=== PATIENT | female | born 1955 | race Caucasian/White ===

== ENCOUNTER 2020-02-18 10:38 | Observation (INO) | payer BC, OTHER, SELFPAY ==
[2020-02-18 11:13] LABS: Absolute Lymphocytes (CBC) 2.2 K/uL (0.7-4.9); Basophils % 0.6 % (0-1.3); Hematocrit 42.2 % (36.0-45.0); Lymphocytes % 30.5 % (15.3-44.8); MPV 8.3 fL (7.6-11.3); RBC Red Blood Cell Count 4.35 M/uL (3.86-4.86)
[2020-02-18 11:17] LABS: Protime INR 0.91
--- NOTE | 2020-02-18 11:20 | RAD REPORT ---
EXAM DESCRIPTION: CT - Ct Stroke Brain Wo Cont - 02/18/2020 11:12 am CLINICAL HISTORY: NUMBNESS Headache, CVA symptomology COMPARISON: No comparisons TECHNIQUE: All CT scans are performed using dose optimization technique as appropriate and may inclu de automated exposure control or mA/KV adjustment according to patient size. FINDINGS: No intracranial hemorrhage, hydrocephalus or extra-axial fluid collection.No areas of brai n edema or evidence of midline shift. The paranasal sinuses and mastoids are clear. The calvarium is intact. IMPRESSION: No acute intracranial abnormality. The findings were discussed with Monica William in the ER on 02/18/2020 at 10:58 a.m. by telephone.
[2020-02-18 11:35] LABS: BUN Blood Urea Nitrogen 14 mg/dL (7-18); Bicarbonate 26 mmol/L (21-32); Creatine Phosphokinase 98 U/L (26-192); Glucose Level 110 mg/dL (74-106); Potassium 4.1 mmol/L (3.5-5.1); Sodium Level 136 mmol/L (136-145); Troponin (Emerg Dept Use Only) < 0.02 ng/mL (0.0-0.045)
[2020-02-18] MEDS ORDERED: ALTEPLASE 100 ML IV ONE (11:38)
[2020-02-18] MEDS ORDERED: NA CHLORIDE 0.9% 100 ML IV ONE (11:38)
--- NOTE | 2020-02-18 11:46 | RAD REPORT ---
EXAM DESCRIPTION: RAD - Chest Single View - 02/18/2020 11:39 am CLINICAL HISTORY: numbness/weakness Chest pain. COMPARISON: No comparisons FINDINGS: Portable technique limits examination quality. The lungs are grossly clear. The heart is normal in size. No displaced fractures. IMPRESSION: No acute intrathoracic process suspected.
--- NOTE | 2020-02-18 12:40 | EDPHYS ---
Physician Documentation [facility] Name: Alannah Sosa Age: 64 yrs Sex: Female : 1955 Arrival Date: 02/18/2020 Time: 10:38 Bed 6 Private MD: Harvey Soto B ED Physician Joon Larson HPI: 02/17 11:02 This 64 yrs old Female presents to ER via Unassigned with complaints of Left rn side numbness, heaviness. 11:02 The patient presents to the emergency department with weakness of the paresthesias of rn the. 11:02 Onset: The symptoms/episode began/occurred at 09:45. Associated signs and symptoms: rn Pertinent positives: paresthesias, weakness, Pertinent negatives: fever, headache, neck stiffness, seizure, syncope, blurred vision, double vision, visual field changes, loss of vision. Severity of symptoms: At their worst the symptoms were moderate in the emergency department the symptoms have improved. The patient has not experienced similar symptoms in the past. Reports vacuuming at home, noticed sudden onset left leg heaviness/numbness, difficulty walking with that leg, progressed to involve left arm, slowly improving but not resolved, took 2 aspirin prior to arrival. No recent head injury/bleeding/surgery. Only HTN.. Historical: - Allergies: 11:10 No Known Allergies; em - Home Meds: 18:29 losartan 50 mg oral tab [Active]; em - PMHx: 11:10 Hypertension; em - PSHx: 18:29 R ankle; em - Immunization history:: Adult Immunizations up to date. - Social history:: Smoking status: Patient denies any tobacco usage or history of. - Family history:: not pertinent. - Hospitalizations: : No recent hospitalization is reported. ROS: 11:02 Constitutional: Negative for fever, chills, and weight loss, Neck: Negative for injury, rn pain, and swelling, Cardiovascular: Negative for chest pain, palpitations, and edema, Respiratory: Negative for shortness of breath, cough, wheezing, and pleuritic chest pain, Abdomen/GI: Negative for abdominal pain, nausea, vomiting, diarrhea, and constipation, Back: Negative for injury and pain, MS/Extremity: Negative for injury and deformity, Skin: Negative for injury, rash, and discoloration, Neuro: Negative for headache, and seizure. Exam: 11:02 Constitutional: This is a well developed, well nourished patient who is awake, alert, rn and in no acute distress. Head/Face: Normocephalic, atraumatic. Cardiovascular: Regular rate and rhythm. No pulse deficits. Respiratory: Speaking full sentences. No increased work of breathing, no retractions or nasal flaring. Abdomen/GI: Soft, non-tender Skin: Warm, dry MS/ Extremity: Pulses equal, no cyanosis. Neurovascular intact. Full, normal range of motion. Equal circumference. Neuro: Awake alert, GCS 15, equal strength bilaterally, + subjective numbness/heaviness left arm and left leg, distal> proximal, no drift, cerebellar exam normal. 14:44 ECG was reviewed by the Attending Physician. rn Vital Signs: 10:45 BP 166 / 85; Pulse 90; Resp 18; Temp 97.8; Pulse Ox 100% on R/A; Weight 90.72 kg (R); em Height 5 ft. 3 in. (160.02 cm); Pain 0/10; 12:00 BP 155 / 76; Pulse 88; Resp 20; Pulse Ox 98% ; sv 12:30 BP 159 / 77; Pulse 83; Resp 24; Pulse Ox 100% ; sv 13:00 BP 155 / 71; Pulse 81; Resp 18; Pulse Ox 100% ; sv 13:30 BP 147 / 74; Pulse 82; Resp 18; Pulse Ox 100% ; sv 14:30 BP 150 / 75; Pulse 81; Resp 16; Pulse Ox 98% on R/A; em 15:27 BP 142 / 62; Pulse 83; Resp 18; Pulse Ox 99% on R/A; em 16:20 BP 143 / 89; Pulse 85; Resp 18; Pulse Ox 99% on R/A; Pain 0/10; em 19:24 BP 146 / 60; Pulse 76; Resp 18; Pulse Ox 95% on R/A; wh 10:45 Body Mass Index 35.43 (90.72 kg, 160.02 cm) em NIH Stroke Scale Scores: 10:48 NIHSS Score: 1 em 10:50 NIHSS Score: 1 rn 19:22 NIHSS Score: 0 wh MDM: 10:39 Patient medically screened. rn 11:10 ED course: Spoke with patient and for long time, symptoms not resolved but rn improving, spoke at length with both of them regarding TPA administration and is something that they want to do if CT head negative. Brief onset with left sided symptoms, not detectable on exam but patient still feels subjective heaviness. Is candidate for TPA without contraindications. . 11:17 ED course: Per radiology CT head neg for acute abnormality, pt consented, will rn administer TPA. 12:37 Data reviewed: vital signs, nurses notes, lab test result(s), EKG, radiologic studies, rn CT scan, and as a result, I will admit patient. Counseling: I had a detailed discussion with the patient and/or guardian regarding: the historical points, exam findings, and any diagnostic results supporting the discharge/admit diagnosis, lab results, radiology results, the need for further work-up and treatment in the hospital. Response to treatment: the patient's symptoms have resolved after treatment, the patient's condition has returned to base line, the patient is now symptom free, and as a result, I will admit patient. Admission orders: after a detailed discussion of the patient's condition and case, the admit orders are written by me. ED course: Consulted with Dr. Azar, will admit to hospitalist. Aspirin taken prior to arrival, tpa administered, + resolution of symptoms, folic acid ordered. . 02/17 11:01 Order name: CPK; Complete Time: 11: rn 02/17 11: Order name: Troponin (emerg Dept Use Only); Complete Time: : rn 02/17 11:01 Order name: Basic Metabolic Panel; Complete Time: : rn 02/17 11:01 Order name: CBC with Diff; Complete Time: : rn 02/17 11:01 Order name: Protime (+inr); Complete Time: 11: rn 02/17 11:01 Order name: Ptt, Activated; Complete Time: 11: rn 02/17 11:01 Order name: CT Stroke Brain w/o Contrast; Complete Time: 11: rn 02/17 11:01 Order name: Stroke CXR 1 View; Complete Time: 12:34 rn 02/17 11:01 Order name: EKG; Complete Time: 11:02 rn 02/17 11:02 Order name: Glucose, Ancillary Testing EDOH 02/17 13:29 Order name: Diet Regular; Complete Time: 13:30 em 02/17 20:49 Order name: US EDMS 02/17 11:01 Order name: Accucheck; Complete Time: rn 02/17 11: Order name: Cardiac monitoring; Complete Time: rn 02/17 11: Order name: EKG - Nurse/Tech; Complete Time: rn 02/17 11:01 Order name: IV Saline Lock; Complete Time: rn 02/17 11: Order name: Labs collected and sent; Complete Time: rn 02/17 11: Order name: NPO; Complete Time: rn 02/17 11: Order name: O2 Per Protocol; Complete Time: rn 02/17 11: Order name: O2 Sat Monitoring; Complete Time: rn 02/17 11: Order name: Stroke Swallow Screen; Complete Time: rn EC:44 Rate is 82 beats/min. Rhythm is regular. QRS [place] is Normal. GA interval is normal. QRS rn interval is prolonged at 140 msec. QT interval is normal. No Q waves. T waves are Normal. No ST changes noted. Clinical impression: NSR w/ Non-specific ST/T Changes. Interpreted by me. Reviewed by me. Administered Medications: 11:40 Drug: ACTIvase {Co-Signature: sv (Chelsey Ring RN).} Route: IV Thrombolytics; Rate: em calculated rate; Infused Over: 60 mins; 12:45 Follow up: Response: No adverse reaction; Marked relief of symptoms em 19:25 Follow up: Response: No adverse reaction 13:00 Drug: foLIC Acid 1 mg Route: IVPB; Site: right antecubital; em 13:10 Follow up: Response: No adverse reaction; IV Status: Completed infusion em 19:25 Follow up: Response: No adverse reaction; IV Status: Completed infusion Point of Care Testing: Blood Glucose: 11:10 Blood Glucose: 105 mg/dL; em Ranges: Critical Glucose Levels:Adult <50 mg/dl or >400 mg/dl <40 mg/dl or >180 mg/dl Disposition: 02/18/20 12:39 Hospitalization ordered by Brenden Franks for Inpatient Admission. Preliminary diagnosis are Ischemic Stroke, Weakness, Paresthesia of skin. - Bed requested for Intensive Care Unit. - Status is Inpatient Admission. - Condition is Stable. - Problem is new. - Symptoms are resolved. NIH Stroke Scale - NIH Stroke Score Date: 02/18/2020 Time: 10:48 Total Score = 1 1a. Level of Consciousness (LOC) - 0(Alert) 1b. Level of Consciousness (LOC) (Year \T\ Age) - 0(Both) 1c. LOC Commands (Open \T\ Closes Eyes/[employer] School Music Instructor) - 0(Both) 2. Best Gaze (Lateral Gaze Paresis) - 0(Normal) 3. Visual Field Loss - 0(No visual loss) 4. Facial Palsy - 0(Normal) 5a. Left Arm: Motor (10-second hold) - 0(No drift) 5b. Right Arm: Motor (10-second hold) - 0(No drift) 6a. Left Leg: Motor (5-second hold - always test supine) - 0(No drift) 6b. Right Leg: Motor (5-second hold - always test supine) - 0(No drift) 7. Limb Ataxia (finger/nose \T\ heel/espinosa - test with eyes open) - 0(Absent) 8. Sensory Loss (pinprick arms/legs/face) - 1(Mild to moderate loss) 9. Best Language: Aphasia (description/naming/reading) - 0(No aphasia) 10. Dysarthria (speech clarity - read or repeat words) - 0(Normal) 11. Extinction and Inattention (visual/tactile/auditory/spatial/personal) - 0(No abnormality) Initials: NIH Stroke Scale - NIH Stroke Score Date: 02/18/2020 Time: 10:50 Total Score = 1 1a. Level of Consciousness (LOC) - 0(Alert) 1b. Level of Consciousness (LOC) (Year \T\ Age) - 0(Both) 1c. LOC Commands (Open \T\ Closes Eyes/[employer] School Music Instructor) - 0(Both) 2. Best Gaze (Lateral Gaze Paresis) - 0(Normal) 3. Visual Field Loss - 0(No visual loss) 4. Facial Palsy - 0(Normal) 5a. Left Arm: Motor (10-second hold) - 0(No drift) 5b. Right Arm: Motor (10-second hold) - 0(No drift) 6a. Left Leg: Motor (5-second hold - always test supine) - 0(No drift) 6b. Right Leg: Motor (5-second hold - always test supine) - 0(No drift) 7. Limb Ataxia (finger/nose \T\ heel/espinosa - test with eyes open) - 0(Absent) 8. Sensory Loss (pinprick arms/legs/face) - 1(Mild to moderate loss) 9. Best Language: Aphasia (description/naming/reading) - 0(No aphasia) 10. Dysarthria (speech clarity - read or repeat words) - 0(Normal) 11. Extinction and Inattention (visual/tactile/auditory/spatial/personal) - 0(No abnormality) Initials: abimael NIH Stroke Scale - NIH Stroke Score Date: 02/18/2020 Time: : Total Score = 0 1a. Level of Consciousness (LOC) - 0(Alert) 1b. Level of Consciousness (LOC) (Year \T\ Age) - 0(Both) 1c. LOC Commands (Open \T\ Closes Eyes/High School Music Instructor) - 0(Both) 2. Best Gaze (Lateral Gaze Paresis) - 0(Normal) 3. Visual Field Loss - 0(No visual loss) 4. Facial Palsy - 0(Normal) 5a. Left Arm: Motor (10-second hold) - 0(No drift) 5b. Right Arm: Motor (10-second hold) - 0(No drift) 6a. Left Leg: Motor (5-second hold - always test supine) - 0(No drift) 6b. Right Leg: Motor (5-second hold - always test supine) - 0(No drift) 7. Limb Ataxia (finger/nose \T\ heel/espinosa - test with eyes open) - 0(Absent) 8. Sensory Loss (pinprick arms/legs/face) - 0(Normal) 9. Best Language: Aphasia (description/naming/reading) - 0(No aphasia) 10. Dysarthria (speech clarity - read or repeat words) - 0(Normal) 11. Extinction and Inattention (visual/tactile/auditory/spatial/personal) - 0(No abnormality) Initials: Signatures: Dispatcher [employer] Nathaly Rosales RN RN kl Webb, Martha, RN RN mw Munoz, Edgar, RN RN em Nieto, Roman, MD MD rn Habalo, Winsy wh Roque, Raymond, RN RN rr5 Chelsey Ring RN sv Corrections: (The following items were deleted from the chart) 13:38 12:39 Hospitalization Ordered by Brenden Franks MD for Inpatient Admission. Preliminary diagnosis is Ischemic Stroke; Weakness; Paresthesia of skin. Bed requested for Telemetry/MedSurg (Inpatient). Status is Inpatient Admission. Condition is Stable. Problem is new. Symptoms are resolved. rn 13:40 13:38 02/18/2020 12:39 Hospitalization Ordered by Brenden Franks MD for kl Inpatient Admission. Preliminary diagnosis is Ischemic Stroke; Weakness; Paresthesia of skin. Bed requested for Telemetry/MedSurg (Inpatient). Status is Inpatient Admission. Condition is Stable. Problem is new. Symptoms are resolved. kl 18:29 11:10 PSHx: None; em em 19:33 13:40 02/18/2020 12:39 Hospitalization Ordered by Brenden Franks MD for Inpatient Admission. Preliminary diagnosis is Ischemic Stroke; Weakness; Paresthesia of skin. Bed requested for Telemetry/MedSurg (Inpatient). Status is Inpatient Admission. Condition is Stable. Problem is new. Symptoms are resolved. 23:01 19:33 02/18/2020 12:39 Hospitalization Ordered by Brenden Franks MD for rr5 Inpatient Admission. Preliminary diagnosis is Ischemic Stroke; Weakness; Paresthesia of skin. Bed requested for RUST ER HOLD. Status is Inpatient Admission. Condition is Stable. Problem is new. Symptoms are resolved. 02/18 00:38 02/17 23:01 02/18/2020 12:39 Hospitalization Ordered by Brenden Franks MD for Inpatient Admission. Preliminary diagnosis is Ischemic Stroke; Weakness; Paresthesia of skin. Bed requested for Intensive Care Unit. Status is Inpatient Admission. Condition is Stable. Problem is new. Symptoms are resolved. [email or web address]
--- NOTE | 2020-02-18 12:40 | ER ---
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 10:45 Coronavirus screen: Patient denies a cough. Patient denies shortness of breath or em difficulty breathing. Patient denies measured and/or subjective temperature greater than 100.4F prior to today's visit. Patient denies travel on a cruise ship or to a country the [facility] currently lists as an affected area. Patient denies contact with known and/or suspected case of COVID-19. Ebola Screen: Patient negative for fever greater than or equal to 101.5 degrees Fahrenheit, and additional compatible Ebola Virus Disease symptoms Patient denies exposure to infectious person. Patient denies travel to an Ebola-affected area in the 21 days before illness onset. No symptoms or risks identified at this time. Initial Sepsis Screen: Does the patient meet any 2 criteria? No. Patient's initial sepsis screen is negative. Does the patient have a suspected source of infection? No. Patient's initial sepsis screen is negative. Risk Assessment: Do you want to hurt yourself or someone else? Patient reports no desire to harm self or others. Onset of symptoms was February 18, 2020 at 09:45. 10:45 Method Of Arrival: Wheelchair em 10:45 Acuity: RYANN 2 em 10:45 An acute neurological deficit is present. The charge nurse has been notified. em Pre-hospital glucose is not applicable to this patient. Triage Assessment: 19:23 Neuro: Reports numbness. 19:23 The onset of the patients symptoms was February 18, 2020 at 09:45. Stroke Activation: Physician: Stroke Attending; Name: ; Notified At: ; Arrived At: Physician: Chief Stroke Resident; Name: ; Notified At: ; Arrived At: Physician: Stroke Resident; Name: ; Notified At: ; Arrived At: Physician: ED Attending; Name: Neo; Notified At: 10:45; Arrived At: Physician: ED Resident; Name: ; Notified At: ; Arrived At: Historical: - Allergies: 11:10 No Known Allergies; em - Home Meds: 18:29 losartan 50 mg oral tab [Active]; em - PMHx: 11:10 Hypertension; em - PSHx: 18:29 R ankle; em - Immunization history:: Adult Immunizations up to date. - Social history:: Smoking status: Patient denies any tobacco usage or history of. - Family history:: not pertinent. - Hospitalizations: : No recent hospitalization is reported. Screenin:45 Abuse screen: Denies threats or abuse. Nutritional screening: No deficits noted. em Tuberculosis screening: No symptoms or risk factors identified. Fall Risk None identified. Assessment: 10:48 Reassessment: Dr. Larson at bedside. em 10:48 VAN Scoring: Arm Drift: Patients demonstrates NO arm weakness. Patient is VAN Negative. em 10:48 General: Appears in no apparent distress. comfortable, Behavior is calm, cooperative, em appropriate for age, Denies fever. Pain: Denies pain. Neuro: Level of Consciousness is awake, alert, obeys commands, Oriented to person, place, time, situation, Appropriate for age Drum Attendant are equal bilaterally Moves all extremities. Gait is steady, Speech is normal, Facial symmetry appears normal, Numbness in left arm and left leg Denies blurred vision dizziness, difficulty swallowing, headache. Cardiovascular: Capillary refill < 3 seconds Patient's skin is warm and dry. Respiratory: Airway is patent Respiratory effort is even, unlabored, Respiratory pattern is regular, symmetrical. GI: Abdomen is round non-distended, Patient currently denies nausea, vomiting. Derm: Skin is intact, is healthy with good turgor, Skin is pink, warm \T\ dry. Musculoskeletal: Capillary refill < 3 seconds, Range of motion: intact in all extremities. 10:57 Reassessment: wheeled to CT via stretcher by me. em 11:10 T-PA (Activase) Screening: Indications: Definite evidence of stroke, ischemic, embolic, em or hypertensive: Yes. Treatment will start within 4.5 hours onset of symptoms: Yes. No evidence of intracranial hemorrhage or CT of head and no evidence of peripheral hemorrhage or recent CVA: Yes. Consent for thrombolytic therapy: Yes. 11:55 Patient has been NPO before screening. The patient is alert, and able to follow em commands. The patient does not exhibit slurred or garbled speech. The patient is not exhibiting difficulty speaking. The patient does not exhibit difficulty understanding words. The patient is able to swallow own secretions with no drooling or need for suction. Patient tolerated one teaspoon of water. No drooling, immediate coughing, gurgling, or clearing of the throat was noted. The patient tolerated 90mL of water. No drooling, immediate coughing, gurgling, or clearing of the throat was noted. The patient passed the bedside swallow screening. Oral medications may be given as ordered. Contact Physician for further diet orders. Provider notified of bedside swallow screening results: Joon Larson MD. 12:10 Reassessment: Patient appears in no apparent distress at this time. Patient and/or em family updated on plan of care and expected duration. Pain level reassessed. Patient is alert, oriented x 3, equal unlabored respirations, skin warm/dry/pink. Patient states feeling better. Patient states symptoms have improved. 13:20 Reassessment: Tim ORTHOPAEDIC SURGEON at bedside to assess pt and then will place admission orders. sv 13:52 Reassessment: Patient appears in no apparent distress at this time. Patient and/or em family updated on plan of care and expected duration. Pain level reassessed. Patient is alert, oriented x 3, equal unlabored respirations, skin warm/dry/pink. 15:22 Reassessment: Patient appears in no apparent distress at this time. Patient and/or em family updated on plan of care and expected duration. Pain level reassessed. Patient is alert, oriented x 3, equal unlabored respirations, skin warm/dry/pink. 16:20 Reassessment: Patient appears in no apparent distress at this time. Patient and/or em family updated on plan of care and expected duration. Pain level reassessed. Patient is alert, oriented x 3, equal unlabored respirations, skin warm/dry/pink. 17:30 Reassessment: Patient appears in no apparent distress at this time. Patient and/or em family updated on plan of care and expected duration. Pain level reassessed. Patient is alert, oriented x 3, equal unlabored respirations, skin warm/dry/pink. 18:30 Reassessment: Patient appears in no apparent distress at this time. Patient and/or em family updated on plan of care and expected duration. Pain level reassessed. Patient is alert, oriented x 3, equal unlabored respirations, skin warm/dry/pink. 19:22 General: Appears in no apparent distress. Behavior is calm, cooperative, appropriate wh for age. Pain: Denies pain. Neuro: Level of Consciousness is awake, alert, obeys commands, Oriented to person, place, time, situation, Appropriate for age Drum Attendant are equal bilaterally Moves all extremities. Speech is normal, Facial symmetry appears normal, Intact. Cardiovascular: Capillary refill < 3 seconds. Respiratory: Airway is patent Respiratory effort is even, unlabored, Respiratory pattern is regular, symmetrical. GI: Abdomen is round non-distended. : No signs and/or symptoms were reported regarding the genitourinary system. EENT: No deficits noted. Derm: Skin is intact, is healthy with good turgor, Skin is pink, warm \T\ dry. normal. Musculoskeletal: Circulation, motion, and sensation intact. Vital Signs: 10:45 BP 166 / 85; Pulse 90; Resp 18; Temp 97.8; Pulse Ox 100% on R/A; Weight 90.72 kg (R); em Height 5 ft. 3 in. (160.02 cm); Pain 0/10; 12:00 BP 155 / 76; Pulse 88; Resp 20; Pulse Ox 98% ; sv 12:30 BP 159 / 77; Pulse 83; Resp 24; Pulse Ox 100% ; sv 13:00 BP 155 / 71; Pulse 81; Resp 18; Pulse Ox 100% ; sv 13:30 BP 147 / 74; Pulse 82; Resp 18; Pulse Ox 100% ; sv 14:30 BP 150 / 75; Pulse 81; Resp 16; Pulse Ox 98% on R/A; em 15:27 BP 142 / 62; Pulse 83; Resp 18; Pulse Ox 99% on R/A; em 16:20 BP 143 / 89; Pulse 85; Resp 18; Pulse Ox 99% on R/A; Pain 0/10; em 19:24 BP 146 / 60; Pulse 76; Resp 18; Pulse Ox 95% on R/A; wh 10:45 Body Mass Index 35.43 (90.72 kg, 160.02 cm) em [facility] Stroke Scale Scores: 10:48 NIHSS Score: 1 em 10:50 NIHSS Score: 1 rn 19:22 NIHSS Score: 0 ED Course: 10:38 Patient arrived in ED. mr 10:39 Harvey Soto MD is Private Physician. mr 10:39 Joon Larson MD is Attending Physician. rn 10:40 Ladarius Barrow, DALTON is Primary Nurse. em 10:45 Patient has correct armband on for positive identification. Placed in gown. Bed in low em position. Call light in reach. Side rails up X2. finishing room operator on. Pulse ox on. NIBP on. 10:45 Procedure consent explained by physician, TPA consent . em 11:02 Initial lab(s) drawn, by me, sent to lab. Inserted saline lock: 20 gauge in right em antecubital area, using aseptic technique. Blood collected. 11:09 Triage completed. em 11:10 Arm band placed on. em 11:12 CT Stroke Brain w/o Contrast In Process Unspecified. EDMS 11:23 EKG done, by ED staff, reviewed by Ladarius Barrow RN. em 11:36 Stroke CXR 1 View In Process Unspecified. EDMS 12:38 Brenden Franks MD is Hospitalizing Provider. rn 19:56 No provider procedures requiring assistance completed. Patient admitted, IV remains in place. 22:00 Primary Nurse role handed off by Ladarius Barrow, DALTON 23:10 Wendy Garcia is Primary Nurse. Administered Medications: 11:40 Drug: ACTIvase {Co-Signature: sv (Chelsey Ring RN).} Route: IV Thrombolytics; Rate: em calculated rate; Infused Over: 60 mins; 12:45 Follow up: Response: No adverse reaction; Marked relief of symptoms em 19:25 Follow up: Response: No adverse reaction 13:00 Drug: foLIC Acid 1 mg Route: IVPB; Site: right antecubital; em 13:10 Follow up: Response: No adverse reaction; IV Status: Completed infusion em 19:25 Follow up: Response: No adverse reaction; IV Status: Completed infusion Point of Care Testing: Blood Glucose: 11:10 Blood Glucose: 105 mg/dL; em Ranges: Outcome: 12:39 Decision to Hospitalize by Provider. rn 19:56 Admitted to ER Hold. Please see [employer] for further documentation. 19:56 Condition: stable 19:56 Instructed on the need for admit. 02/18 00:38 Patient left the ED. 00:41 Admitted to ICU accompanied by nurse, via wheelchair, room 10, with chart, Report wh called to Savannah HOFFMAN 00:41 Condition: stable 00:41 Instructed on the need for admit. NIH Stroke Scale - NIH Stroke Score Date: 02/18/2020 Time: 10:48 Total Score = 1 1a. Level of Consciousness (LOC) - 0(Alert) 1b. Level of Consciousness (LOC) (Year \T\ Age) - 0(Both) 1c. LOC Commands (Open \T\ Closes Eyes/Wash Oil Pump Operator Helper) - 0(Both) 2. Best Gaze (Lateral Gaze Paresis) - 0(Normal) 3. Visual Field Loss - 0(No visual loss) 4. Facial Palsy - 0(Normal) 5a. Left Arm: Motor (10-second hold) - 0(No drift) 5b. Right Arm: Motor (10-second hold) - 0(No drift) 6a. Left Leg: Motor (5-second hold - always test supine) - 0(No drift) 6b. Right Leg: Motor (5-second hold - always test supine) - 0(No drift) 7. Limb Ataxia (finger/nose \T\ heel/espinosa - test with eyes open) - 0(Absent) 8. Sensory Loss (pinprick arms/legs/face) - 1(Mild to moderate loss) 9. Best Language: Aphasia (description/naming/reading) - 0(No aphasia) 10. Dysarthria (speech clarity - read or repeat words) - 0(Normal) 11. Extinction and Inattention (visual/tactile/auditory/spatial/personal) - 0(No abnormality) Initials: em NIH Stroke Scale - NIH Stroke Score Date: 02/18/2020 Time: 10:50 Total Score = 1 1a. Level of Consciousness (LOC) - 0(Alert) 1b. Level of Consciousness (LOC) (Year \T\ Age) - 0(Both) 1c. LOC Commands (Open \T\ Closes Eyes/Wash Oil Pump Operator Helper) - 0(Both) 2. Best Gaze (Lateral Gaze Paresis) - 0(Normal) 3. Visual Field Loss - 0(No visual loss) 4. Facial Palsy - 0(Normal) 5a. Left Arm: Motor (10-second hold) - 0(No drift) 5b. Right Arm: Motor (10-second hold) - 0(No drift) 6a. Left Leg: Motor (5-second hold - always test supine) - 0(No drift) 6b. Right Leg: Motor (5-second hold - always test supine) - 0(No drift) 7. Limb Ataxia (finger/nose \T\ heel/espinosa - test with eyes open) - 0(Absent) 8. Sensory Loss (pinprick arms/legs/face) - 1(Mild to moderate loss) 9. Best Language: Aphasia (description/naming/reading) - 0(No aphasia) 10. Dysarthria (speech clarity - read or repeat words) - 0(Normal) 11. Extinction and Inattention (visual/tactile/auditory/spatial/personal) - 0(No abnormality) Initials: dalton NIH Stroke Scale - NIH Stroke Score Date: 02/18/2020 Time: 19:22 Total Score = 0 1a. Level of Consciousness (LOC) - 0(Alert) 1b. Level of Consciousness (LOC) (Year \T\ Age) - 0(Both) 1c. LOC Commands (Open \T\ Closes Eyes/Wash Oil Pump Operator Helper) - 0(Both) 2. Best Gaze (Lateral Gaze Paresis) - 0(Normal) 3. Visual Field Loss - 0(No visual loss) 4. Facial Palsy - 0(Normal) 5a. Left Arm: Motor (10-second hold) - 0(No drift) 5b. Right Arm: Motor (10-second hold) - 0(No drift) 6a. Left Leg: Motor (5-second hold - always test supine) - 0(No drift) 6b. Right Leg: Motor (5-second hold - always test supine) - 0(No drift) 7. Limb Ataxia (finger/nose \T\ heel/espinosa - test with eyes open) - 0(Absent) 8. Sensory Loss (pinprick arms/legs/face) - 0(Normal) 9. Best Language: Aphasia (description/naming/reading) - 0(No aphasia) 10. Dysarthria (speech clarity - read or repeat words) - 0(Normal) 11. Extinction and Inattention (visual/tactile/auditory/spatial/personal) - 0(No abnormality) Initials: wh Signatures: Dispatcher [employer] [facility] María Elena, Chelsey, RN RN sv Edwar Bejarano RN RN Serina Encinas mr Danial, Ladarius, DALTON HOFFMAN em Joon Larson MD MD rn Habalo, Winsy Chelsey valle Corrections: (The following items were deleted from the chart) 02/17 13:10 11:10 Reassessment: Patient appears in no apparent distress at this time. em Patient and/or family updated on plan of care and expected duration. Pain level reassessed. Patient is alert, oriented x 3, equal unlabored respirations, skin warm/dry/pink. Patient states feeling better. Patient states symptoms have improved. em 18:29 11:10 PSHx: None; em em
[2020-02-18] MEDS ORDERED: FOLIC ACID 5 MG/ML VIAL ONE (13:10)
--- NOTE | 2020-02-18 13:46 | P.HP ---
Certification for Inpatient Patient admitted to: Inpatient With expected LOS: >2 Midnights Patient will require the following post-hospital care: None Practitioner: I am a practitioner with admitting privileges, knowledge of patient current condition, hospital course, and medical plan of care. Services: Services provided to patient in accordance with Admission requirements found in Title 42 Section 412.3 of the Code of Federal Regulations Patient History Date of Service: 02/18/20 Primary Care Provider: Charles Reason for admission: Ischemic CVA History of Present Illness: 64-year-old female with past medical history of hypertension presents emergency department for left lower extremity weakness/numbness. Patient reports that the symptoms started approximately 0945 this morning. Patient presented within the window and based on her discussion with ED provider and symptoms it was determined that she would be a good candidate for t-PA. Patient did receive t-PA in the emergency department and symptoms have since resolved. Patient is currently feeling at her baseline. CT is negative for any acute findings. ED provider consulted with Neurology while patient was in the emergency department and wishes to admit patient for further evaluation and management. When I saw the patient in the emergency department she was awake, alert, oriented x3. Patient denies any pain, reports that she feels normal. Blood pressure is slightly elevated at 150/80. Patient be admitted for further evaluation and management Home medications list reviewed: Yes - Past Medical/Surgical History Has patient received pneumonia vaccine in the past: No Diabetic: No -: Hypertension -: Left ankle surgery Psychosocial/ Personal History: Patient lives at home with her spouse - Family History Father -: Cancer - Social History Smoking Status: Never smoker Alcohol use: Yes CD- Drugs: No Caffeine use: No Place of Residence: Home Review of Systems Unremarkable Physical Examination - Physical Exam General: Alert, In no apparent distress HEENT: Atraumatic, PERRLA, Mucous membr. moist/pink, EOMI, Sclerae nonicteric Neck: Supple, 2+ carotid pulse no bruit Respiratory: Clear to auscultation bilaterally, Normal air movement Cardiovascular: Regular rate/rhythm, Normal S1 S2 Gastrointestinal: Normal bowel sounds, No tenderness Musculoskeletal: No tenderness Integumentary: No rashes Neurological: Normal gait, Normal speech, Normal strength at 5/5 x4 extr, Normal tone, Normal affect - Studies Laboratory Data (last 24 hrs) 02/18/20 11:02: PT 10.7, INR 0.91, APTT 33.1 02/18/20 11:02: WBC 7.1, Hgb 14.4, Hct 42.2, Plt Count 226 02/18/20 11:02: Sodium 136, Potassium 4.1, BUN 14, Creatinine 0.77, Glucose 110 H Assessment and Plan - Plan Assessment Acute ischemic CVA status post TPA infusion with the resolution of symptoms Hypertension Plan Acute ischemic CVA status post TPA infusion with the resolution of symptoms: Patient be admitted to the ICU for close monitoring after t-PA infusion. Neurology has been consulted. Will continue with stroke workup including MRI, echocardiogram, ultrasound of the carotids, lipid panel, evaluation by speech and physical therapy. Statin therapy has been started. Will hold on aspirin/Plavix for the next 24 hr. Q.1 hr neuro checks in place. Patient can likely be downgraded tomorrow morning. Hypertension: Will hold patient's blood pressure medication this time to allow for permissive hypertension for the next 3 days with a systolic max of 170. Discharge Plan: Home Plan to discharge in: 48 Hours - Advance Directives Does patient have a Living Will: No Does patient have a Durable POA for Healthcare: No - Code Status/Comfort Care Code Status Assessed: Yes (Patient is full code) Critical Care: No Time Spent Managing Pts Care (In Minutes): 55
[2020-02-18] MEDS ORDERED: ONDANSETRON 4 MG/2 ML VIAL IV PRN (19:46)
[2020-02-18] MEDS ORDERED: ACETAMINOPHEN 500 MG TAB PO PRN (19:46)
[2020-02-18] MEDS ORDERED: NA CHLORIDE 0.9% 1,000 ML IV SCH (19:46)
[2020-02-18 19:52] VITALS: BMI 35.4
--- NOTE | 2020-02-18 20:47 | RAD REPORT ---
EXAM DESCRIPTION: USCarotid Artery Bilateral02/18/2020 8:35 pm CLINICAL HISTORY: cva COMPARISON: None FINDINGS: The velocity of the right internal carotid artery equals 78 cm/sec. The right ICA/CCA rati o 1. The velocity of the left internal carotid artery equals 80 cm/sec. The left ICA/CCA ratio 1.4 Minimal plaque is present within the carotid arteries. The vertebral arteries demonstrate antegrade flow IMPRESSION: Minimal plaque within the carotid arteries without evidence of a hemodynamically signifi cant stenosis NASCET criteria used. Mild 0-49% stenosis Moderate 50-69% stenosis Severe 70-99% stenosis
[2020-02-18] MEDS ORDERED: ATORVASTATIN 20 MG TAB PO SCH (21:00)
[2020-02-18] MEDS ORDERED: ATORVASTATIN 20 MG TAB ONE (21:01)
[2020-02-18] MEDS ORDERED: NA CHLORIDE 0.9% 1,000 ML ONE (21:01)
[2020-02-19 04:42] LABS: Absolute Lymphocytes (CBC) 2.2 K/uL (0.7-4.9); Basophils % 0.4 % (0-1.3); Hematocrit 39.3 % (36.0-45.0); Lymphocytes % 31.7 % (15.3-44.8); MPV 8.4 fL (7.6-11.3); RBC Red Blood Cell Count 4.05 M/uL (3.86-4.86)
[2020-02-19 04:46] LABS: Protime INR 1.01
[2020-02-19 05:16] LABS: Potassium 4.5 mmol/L (3.5-5.1); T4,Total 6.4 ug/dL (4.8-13.9); Thyroid Stimulating Hormone 3.12 uIU/mL (0.360-3.740)
[2020-02-19 05:17] VITALS: O2SAT 96
--- NOTE | 2020-02-19 07:26 | EKG ---
Test Date: 2020-02-18 Test Time: 11:23:22 Taping Supervisor: MAEGAN MEASUREMENT RESULTS: Intervals: Rate: 82 NM: 166 QRSD: 140 QT: 402 QTc: 469 Romulus: P: 57 NM: 166 QRS: 9 T: 99 INTERPRETIVE STATEMENTS: Normal sinus rhythm Left bundle branch block Abnormal ECG No previous ECG available for comparison Electronically Signed On 02-19-20 07:25:01 CDT by Mejia Crooks
[2020-02-19] MEDS ORDERED: FOLIC ACID 1 MG TABLET ONE (08:24)
[2020-02-19] MEDS ORDERED: FOLIC ACID 1 MG TABLET PO SCH (09:00)
[2020-02-19 11:34] VITALS: BP 134/70
--- NOTE | 2020-02-19 12:47 | RAD REPORT ---
EXAM DESCRIPTION: MRI - Brain W/Wo Cont - 02/19/2020 12:28 pm CLINICAL HISTORY: LLE weakness Headache, drowsiness, CVA symptomology COMPARISON: MRA Head Wo Cont dated 02/19/2020; MRA Neck W/Wo Cont dated 02/19/2020 TECHNIQUE: Multi-sequence, multiplanar MR imaging of the brain was performed with contrast. FINDINGS: No intracranial hemorrhage, hydrocephalus, or extra-axial fluid collection.Few small foci of T2 and FLAIR hyperintensity in the periventricular and deep white matter noted likely representing chronic microvascular ischemia. No edema or shift of midline structures. No intracranial mass. DWI i s negative for acute CVA. The midline structures are normally formed. Mastoid air cells and paranasal sinuses are clear. Post-contrast images show no abnormal enhancement to suggest tumor or infection. IMPRESSION: Negative for acute CVA or other acute intracranial abnormality. No pathologic post-contrast enhancement suspected.
--- NOTE | 2020-02-19 12:48 | RAD REPORT ---
EXAM DESCRIPTION: MRI - MRA Head Wo Cont - 02/19/2020 12:27 pm CLINICAL HISTORY: LLE weakness CVA COMPARISON: Ct Stroke Brain Wo Cont dated 02/18/2020 FINDINGS: 3D noncontrast [id number] MR angiography of the [place] of [place] was performed. No aneurysm, flow-limiting stenosis or vascular malformation is seen. Forward flow seen in codominant vertebral arteries. The visualized dural venous sinuses appear patent. IMPRESSION: No significant flow abnormality of the [place] of [place] is identified.
--- NOTE | 2020-02-19 12:49 | RAD REPORT ---
EXAM DESCRIPTION: MRI - MRA Neck W/Wo Cont - 02/19/2020 12:28 pm CLINICAL HISTORY: LLE weakness Headache, drowsiness, CVA symptomology COMPARISON: No comparisons FINDINGS: Contrast enhance 2D [id number] MR angiography of the neck vessels was performed. A left aortic arch is noted with normal branching pattern of the great vessels. Both subclavian arteries and common carotid arteries are widely patent. Both internal carotid arterie s are widely patent without stenosis or flow abnormality. Antegrade flow seen in both vertebral arteries, which appear codominant. IMPRESSION: No flow abnormality of the neck vessels is identified.
[2020-02-19 12:53] VITALS: TEMP 98.2
--- NOTE | 2020-02-19 13:29 | P.DS ---
Admission Date: 02/18/20 Discharge Date: 02/19/20 Primary Care Provider: Charles Reason for Admission: TIA Consultations: Neurology- Dr. Azar Procedures: CT Brain FINDINGS: No intracranial hemorrhage, hydrocephalus or extra-axial fluid collection.No areas of brain edema or evidence of midline shift. The paranasal sinuses and mastoids are clear. The calvarium is intact. IMPRESSION: No acute intracranial abnormality. CXR FINDINGS: Portable technique limits examination quality. The lungs are grossly clear. The heart is normal in size. No displaced fractures. IMPRESSION: No acute intrathoracic process suspected. MRI brain with FINDINGS: 3D noncontrast [id number] MR angiography of the [place] was performed. No aneurysm, flow-limiting stenosis or vascular malformation is seen. Forward flow seen in codominant vertebral arteries. The visualized dural venous sinuses appear patent. IMPRESSION: No significant flow abnormality of the [place] is identified. MRI brain without FINDINGS: No intracranial hemorrhage, hydrocephalus, or extra-axial fluid collection.Few small foci of T2 and FLAIR hyperintensity in the periventricular and deep white matter noted likely representing chronic microvascular ischemia. No edema or shift of midline structures. No intracranial mass. DWI is negative for acute CVA. The midline structures are normally formed. Mastoid air cells and paranasal sinuses are clear. Post-contrast images show no abnormal enhancement to suggest tumor or infection. IMPRESSION: Negative for acute CVA or other acute intracranial abnormality. No pathologic post-contrast enhancement suspected. MRI neck FINDINGS: Contrast enhance 2D [id number] MR angiography of the neck vessels was performed. A left aortic arch is noted with normal branching pattern of the great vessels. Both subclavian arteries and common carotid arteries are widely patent. Both internal carotid arteries are widely patent without stenosis or flow abnormality. Antegrade flow seen in both vertebral arteries, which appear codominant. IMPRESSION: No flow abnormality of the neck vessels is identified. US carotids FINDINGS: The velocity of the right internal carotid artery equals 78 cm/sec. The right ICA/CCA ratio 1. The velocity of the left internal carotid artery equals 80 cm/sec. The left ICA/CCA ratio 1.4 Minimal plaque is present within the carotid arteries. The vertebral arteries demonstrate antegrade flow IMPRESSION: Minimal plaque within the carotid arteries without evidence of a hemodynamically significant stenosis NASCET criteria used. Mild 0-49% stenosis Moderate 50-69% stenosis Severe 70-99% stenosis Medical problem list TIA Hypertension Hyperlipidemia Brief History of Present Illness: 64-year-old female with past medical history of hypertension presents emergency department for left lower extremity weakness/numbness. Patient reports that the symptoms started approximately 0945 this morning. Patient presented within the window and based on her discussion with ED provider and symptoms it was determined that she would be a good candidate for t-PA. Patient did receive t-PA in the emergency department and symptoms have since resolved. Patient is currently feeling at her baseline. CT is negative for any acute findings. ED provider consulted with Neurology while patient was in the emergency department and wishes to admit patient for further evaluation and management. Hospital Course: 64-year-old female with medical history of hypertension was admitted to the emergency department after experiencing subjective sensation changes to the left lower extremity. After detailed discussion with ED provider patient elected to receive TPA. TPA was infused and after completion patient experienced complete resolution of her sensory symptoms. Patient was kept in the ICU overnight and monitor closely, patient doing very well. Patient without any neurological deficits. Patient ambulatory to restroom denies headache, vital signs stable, no bleeding noted. Lab stable. Patient received echocardiogram, ultrasound of the carotids, MRI/MRA of the brain and neck, CT head without contrast, chest x-ray all of which were unremarkable. Discussed case at length with neurology who believes that this was either a TIA or the t-PA help to resolve the symptoms. Patient was not previously on aspirin so the current recommendation would be that the patient takes aspirin 81 mg p.o. once daily, Lipitor 40 mg p.o. at bedtime, folic acid 1 mg p.o. daily. Patient is to follow up with neurology on outpatient basis, patient can call on Sunday to set up appointment. Patient also instructed to present to the closest emergency department with any neurological symptoms at all. Patient history of hypertension, will continue with losartan 50 mg p.o. once daily. Patient also instructed to keep daily log of blood pressures until she is seen by neurology. <Tim Bradley - Last Filed: 02/19/20 13:21> Admission Date: 02/18/20 Discharge Date: 02/19/20 Hospital Course: The patient was seen and examined and findings were discussed with the patient and the consult Agree with the assessment and plan as documented by the JOSE R <Tato Franks - Last Filed: 02/19/20 14:12> Disposition: ROUTINE DISCHARGE Discharge Condition: GOOD Vital Signs/Physical Exam: Temp Pulse Resp BP Pulse Ox 98.2 F 97 H 16 134/70 97 02/19/20 12:00 02/19/20 12:00 02/19/20 12:00 02/19/20 11:00 02/19/20 12:00 General: Alert, In no apparent distress HEENT: Atraumatic, PERRLA, EOMI Neck: Supple, JVD not distended Respiratory: Clear to auscultation bilaterally, Normal air movement Cardiovascular: Regular rate/rhythm, Normal S1 S2 Gastrointestinal: Normal bowel sounds, No tenderness Musculoskeletal: No tenderness Integumentary: No rashes Neurological: Normal speech, Normal tone, Normal affect Lymphatics: No axilla or inguinal lymphadenopathy Laboratory Data at Discharge: WBC 7.0 K/uL (4.3-10.9) 02/19/20 04:20 Hgb 13.6 g/dL (12.0-15.0) 02/19/20 04:20 Hct 39.3 % (36.0-45.0) 02/19/20 04:20 Plt Count 211 K/uL (152-406) 02/19/20 04:20 PT 11.9 SECONDS (9.5-12.5) 02/19/20 04:20 INR 1.01 02/19/20 04:20 APTT 32.3 SECONDS (24.3-36.9) 02/19/20 04:20 Sodium 142 mmol/L (136-145) 02/19/20 04:20 Potassium 4.5 mmol/L (3.5-5.1) 02/19/20 04:20 BUN 10 mg/dL (7-18) 02/19/20 04:20 Creatinine 0.74 mg/dL (0.55-1.3) 02/19/20 04:20 Glucose 104 mg/dL (74-106) 02/19/20 04:20 Triglycerides 93 mg/dL (<150) 02/19/20 04:20 Cholesterol 232 mg/dL (<200) H 02/19/20 04:20 HDL Cholesterol 85 mg/dL (40-60) H 02/19/20 04:20 Cholesterol/HDL Ratio 2.73 02/19/20 04:20 <Tim Bradley - Last Filed: 02/19/20 13:21> Vital Signs/Physical Exam: Temp Pulse Resp BP Pulse Ox 98.2 F 97 H 16 134/70 97 02/19/20 12:00 02/19/20 12:00 02/19/20 12:00 02/19/20 11:00 02/19/20 12:00 Laboratory Data at Discharge: WBC 7.0 K/uL (4.3-10.9) 02/19/20 04:20 Hgb 13.6 g/dL (12.0-15.0) 02/19/20 04:20 Hct 39.3 % (36.0-45.0) 02/19/20 04:20 Plt Count 211 K/uL (152-406) 02/19/20 04:20 PT 11.9 SECONDS (9.5-12.5) 02/19/20 04:20 INR 1.01 02/19/20 04:20 APTT 32.3 SECONDS (24.3-36.9) 02/19/20 04:20 Sodium 142 mmol/L (136-145) 02/19/20 04:20 Potassium 4.5 mmol/L (3.5-5.1) 02/19/20 04:20 BUN 10 mg/dL (7-18) 02/19/20 04:20 Creatinine 0.74 mg/dL (0.55-1.3) 02/19/20 04:20 Glucose 104 mg/dL (74-106) 02/19/20 04:20 Triglycerides 93 mg/dL (<150) 02/19/20 04:20 Cholesterol 232 mg/dL (<200) H 02/19/20 04:20 HDL Cholesterol 85 mg/dL (40-60) H 02/19/20 04:20 Cholesterol/HDL Ratio 2.73 02/19/20 04:20 <Tato Franks - Last Filed: 02/19/20 14:12> Patient Discharge Instructions: 1. Please follow up with the primary care doctor within 1 week to follow up this hospitalization. 2. Please contact Dr. Azar's office on Sunday to schedule follow up appointment. 3. 64-year-old female with medical history of hypertension was admitted to the emergency department after experiencing subjective sensation changes to the left lower extremity. After detailed discussion with ED provider patient elected to receive TPA. TPA was infused and after completion patient experienced complete resolution of her sensory symptoms. Patient was kept in the ICU overnight and monitor closely, patient doing very well. Patient without any neurological deficits. Patient ambulatory to restroom denies headache, vital signs stable, no bleeding noted. Lab stable. Patient received echocardiogram, ultrasound of the carotids, MRI/MRA of the brain and neck, CT head without contrast, chest x- ray all of which were unremarkable. Discussed case at length with neurology who believes that this was either a TIA or the t-PA help to resolve the symptoms. Patient was not previously on aspirin so the current recommendation would be that the patient takes aspirin 81 mg p.o. once daily, Lipitor 40 mg p.o. at bedtime, folic acid 1 mg p.o. daily. Patient is to follow up with neurology on outpatient basis, patient can call on Sunday to set up appointment. Patient also instructed to present to the closest emergency department with any neurological symptoms at all. Patient history of hypertension, will continue with losartan 50 mg p.o. once daily. Patient also instructed to keep daily log of blood pressures until she is seen by neurology. Diet: Regular Activity: Ad jamal Time spent managing pt's care (in minutes): 55 <Tim Bradley - Last Filed: 02/19/20 13:21> Physician Review: Patient Assessed, Agree with Above Assessment and Plan <Tato Franks - Last Filed: 02/19/20 14:12> Home Medications: Losartan Potassium 50 mg PO DAILY 02/18/20 Aspirin [Aspirin EC 81 MG] 81 mg PO DAILY #60 tablet. 02/19/20 Atorvastatin Calcium [Lipitor] 40 mg PO BEDTIME #60 tab 02/19/20 Folic Acid 1 mg PO DAILY #60 tablet 02/19/20 New Medications: Aspirin [Aspirin EC 81 MG] 81 mg PO DAILY #60 tablet. Folic Acid 1 mg PO DAILY #60 tablet Atorvastatin Calcium [Lipitor] 40 mg PO BEDTIME #60 tab Followup: Andry Azar MD [ASSOCIATE-ACTIVE - CAN ADMIT] - 02/23/20
--- NOTE | 2020-02-20 09:06 | ECHO ---
HEIGHT: 5 ft 3 in WEIGHT: 200 lb 0 oz DATE OF STUDY: 02/19/[address]: Tim Bradley NP 2-DIMENSIONAL: YES M.MODE: YES DOPPLER: YES COLOR FLOW: YES TDS: NO PORTABLE: YES DEFINITY: NO BUBBLE STUDY: NO DIAGNOSIS: STROKE CARDIAC HISTORY: CATHERIZATION: NO SURGERY: NO PROSTHETIC VALVE: NO PACEMAKER: NO MEASUREMENTS (cm) DIASTOLIC (NORMALS) SYSTOLIC (NORMALS) IVSd 0.9 (0.6-1.2) LA Diam 2.7 (1.9-4.0) LVEF 59% LVIDd 3.4 (3.5-5.7) LVIDs 2.4 (2.0-3.5) %FS 31% LVPWd 1.0 (0.6-1.2) Ao Diam 2.4 (2.0-3.7) 2 DIMENSIONAL ASSESSMENT: RIGHT ATRIUM: NORMAL LEFT ATRIUM: NORMAL RIGHT VENTRICLE: NORMAL LEFT VENTRICLE: NORMAL TRICUSPID VALVE: NORMAL MITRAL VALVE: NORMAL PULMONIC VALVE: NORMAL AORTIC VALVE: NORMAL PERICARDIAL EFFUSION: NONE AORTIC ROOT: NORMAL LEFT VENTRICULAR WALL MOTION: NORMAL DOPPLER/COLOR FLOW: NORMAL COMMENTS: NORMAL LEFT VENTRICULAR EJECTION FRACTION WITH NORMAL WALL MOTION. NORMAL STUDY. TECHNOLOGIST: YOVANY COMER
== END 2020-02-19 14:30 | disposition home or self-care (01) ==
LOC: ER 10:38 → ERHOLD 13:33 → INTOOBSV 13:33 → ERHOLD 23:13
PROVIDERS: ADMIT Family Medicine; ATTEND Family Medicine
DX: G45.9 Transient cerebral ischemic attack, unspecified (principal); I10 Essential (primary) hypertension; E78.5 Hyperlipidemia, unspecified; Z79.899 Other long term (current) drug therapy
CPT/HCPCS: 92977; 93005; 93306; 85025 ×2; 80048 ×2; 36415; 82550; 85610 ×2; 80061; 82947; 85730 ×2; 84436; 84443; 84484; 70450; 71045; 93880; 70553; 70544; 70549; 97162; 96374; 99291; A9577; J2997; J7030; G0378 ×3